=== PATIENT | male | born 1960 | race Caucasian/White ===

== ENCOUNTER 2016-06-02 00:25 | Emergency (ER) | payer MEDICARE, OTHER | END 2016-06-02 06:50 | disposition home or self-care (01) | LOC: ER1 00:25 | DX: E11.65 Type 2 diabetes mellitus with hyperglycemia (principal); I25.10 Atherosclerotic heart disease of native coronary artery without angina pectoris; I25.2 Old myocardial infarction; I10 Essential (primary) hypertension; E78.5 Hyperlipidemia, unspecified; F17.210 Nicotine dependence, cigarettes, uncomplicated; Z79.899 Other long term (current) drug therapy | CPT/HCPCS: 82962; 96372; 99284; J1815 ==

== ENCOUNTER 2020-03-29 16:08 | Emergency (ER) | payer MEDICARE, OTHER ==
[~2020-03-29 16:08] MED LIST: AMLODIPINE BESYL5 MG PO; AUGMENTIN 875-1 EACH PO; BACTROBAN CREAM15 GM TOP; BASAGLAR K100 UNIT/1 SQ; ENOXAPARIN30 MG/0.3 SC; GABAPENTIN800 MG PO; HUMALOG100 UNIT/1 SQ; HUMALOG100 UNIT/3 SC; LEVAQUIN500 MG PO; LISINOPRIL-HCT1 EAC2 PO; LISINOPRIL20 MG PO; LISINOPRIL40 MG PO; METOPROLOL SUCC25 MG PO; NICOTINE PATCH1 EAC1 TOP; NOVOLOG MI100 UNIT/1 SC; OXYCODONE HCL5 MG PO; PAROXETINE HCL10 MG PO; PHENERGAN 25 MG25 M1 PO; SUBOXONE 8 MG-1 EACH SL; ZOFRAN ODT 4 MG4 MG PO
[2020-03-29] MEDS ORDERED: MOBIC15 MG PO (18:12)
== END 2020-03-29 18:21 | disposition home or self-care (01) ==
LOC: ER1 16:08
DX: S82.445A Nondisplaced spiral fracture of shaft of left fibula, initial encounter for closed fracture (principal); E11.9 Type 2 diabetes mellitus without complications; I10 Essential (primary) hypertension; F17.200 Nicotine dependence, unspecified, uncomplicated; Z86.19 Personal history of other infectious and parasitic diseases; W00.1XXA Fall from stairs and steps due to ice and snow, initial encounter; Y92.009 Unspecified place in unspecified non-institutional (private) residence as the place of occurrence of the external cause
CPT/HCPCS: 73610; 73630; 99283

== ENCOUNTER 2020-04-27 12:42 | Emergency (ER) | payer MEDICARE, OTHER ==
[~2020-04-27 12:42] MED LIST changes: +MOBIC15 MG PO
== END 2020-04-27 16:00 | disposition left against medical advice (07) ==
LOC: ER1 12:42
DX: Z53.21 Procedure and treatment not carried out due to patient leaving prior to being seen by health care provider (principal)